=== PATIENT | male | born 1975 | race Caucasian/White ===

== ENCOUNTER → 2020-11-18 07:43 | Outpatient (CLI) | payer BC | END | disposition home or self-care (01) | LOC: D.CT 07:43 | PROVIDERS: ATTEND Clinical Nurse Specialist Family Health | DX: S52.121A Displaced fracture of head of right radius, initial encounter for closed fracture (principal) ==

== ENCOUNTER → 2020-12-06 07:37 | Outpatient (CLI) | payer BC | END | disposition home or self-care (01) | LOC: D.CT 07:37 | PROVIDERS: ATTEND Clinical Nurse Specialist Family Health | DX: S62.001A Unspecified fracture of navicular [scaphoid] bone of right wrist, initial encounter for closed fracture (principal) ==